=== PATIENT | male | born 1960 | race Caucasian/White ===

== ENCOUNTER 2024-01-23 18:16 | Emergency (ER) | payer OTHER, BC ==
[2024-01-23 18:25] VITALS: TEMP 97.6; BMI 24.4
[2024-01-23] MEDS ORDERED: ACETAMINOPHEN 500 MG TABLET (FP) ONE (19:46)
[2024-01-23] MEDS: ACETAMINOPHEN 500 MG TABLET (FP) PO ONE (20:08)
[2024-01-23 21:18] VITALS: BP 148/71; PULSE 53; RESP 18
== END 2024-01-23 21:20 | disposition home or self-care (01) ==
LOC: JERFT 18:16
DX: M25.512 Pain in left shoulder (principal); M25.562 Pain in left knee; V49.40XA Driver injured in collision with unspecified motor vehicles in traffic accident, initial encounter; Y92.410 Unspecified street and highway as the place of occurrence of the external cause
CPT/HCPCS: 73030-TC-LT-FY; 73562-TC-LT-FY; 99284-25